=== PATIENT | female | born 1950 | race Caucasian/White ===

== ENCOUNTER 2021-06-26 22:07 | Inpatient (IN) | payer OTHER ==
[~2021-06-26] VITALS: Ht 160 cm; Wt 77.1 kg
[2021-06-26] MEDS ORDERED: ELIQUIS5 M1 (22:45)
[2021-06-26] MEDS ORDERED: SEROQUEL50 MG (22:46)
[2021-06-26] MEDS ORDERED: ALTACE2.5 MG (22:46)
[2021-06-26] MEDS ORDERED: SYNTHROID100 MCG (22:46)
[2021-06-26] MEDS ORDERED: ESTAZOLAM2 MG (22:46)
== END 2021-07-05 16:34 | disposition home or self-care (01) | DRG 371 ==
LOC: ER 22:07 → SURG 06-27 14:46 → SURH 06-30 14:40
PROVIDERS: ADMIT Internal Medicine; ATTEND Internal Medicine
PROC: BW21ZZZ Computerized Tomography (CT Scan) of Abdomen and Pelvis (ICD-10-PCS; principal; 2021-06-27)
PROC: 3E0F7GC Introduction of Other Therapeutic Substance into Respiratory Tract, Via Natural or Artificial Opening (ICD-10-PCS; 2021-06-29)
PROC: B24BZZZ Ultrasonography of Heart with Aorta (ICD-10-PCS; 2021-06-29)
PROC: B54DZZZ Ultrasonography of Bilateral Lower Extremity Veins (ICD-10-PCS; 2021-06-29)
PROC: 4A033R1 Measurement of Arterial Saturation, Peripheral, Percutaneous Approach (ICD-10-PCS; 2021-06-29)
PROC: 8E0ZXY6 Isolation (ICD-10-PCS; 2021-06-30)
PROC: BW2510Z Computerized Tomography (CT Scan) of Chest, Abdomen and Pelvis using Low Osmolar Contrast, Unenhanced and Enhanced (ICD-10-PCS; 2021-06-30)
PROC: 3E0F7SF Introduction of Other Gas into Respiratory Tract, Via Natural or Artificial Opening (ICD-10-PCS; 2021-07-03)
DX: K35.890 Other acute appendicitis without perforation or gangrene (principal); J10.1 Influenza due to other identified influenza virus with other respiratory manifestations; J18.9 Pneumonia, unspecified organism; J98.11 Atelectasis; N39.0 Urinary tract infection, site not specified; I27.20 Pulmonary hypertension, unspecified; I51.7 Cardiomegaly; I48.91 Unspecified atrial fibrillation; I10 Essential (primary) hypertension; R09.02 Hypoxemia; D72.828 Other elevated white blood cell count; Z20.822 Contact with and (suspected) exposure to COVID-19; Z79.01 Long term (current) use of anticoagulants